=== PATIENT | male | born 1950 | race Two or more races ===

== ENCOUNTER 2019-04-05 10:43 | Outpatient (CLI) | payer OTHER | END 2019-04-05 10:45 | disposition home or self-care (01) | LOC: RAD 10:43 | DX: N20.0 Calculus of kidney (principal) ==

== ENCOUNTER 2020-08-13 11:00 | Outpatient (CLI) | payer OTHER | END 2020-08-13 11:08 | disposition home or self-care (01) | LOC: RAD 11:00 | PROVIDERS: ATTEND Urology | DX: N20.0 Calculus of kidney (principal) ==

== ENCOUNTER 2022-02-15 10:05 | Outpatient (CLI) | payer OTHER | END 2022-02-15 10:11 | disposition home or self-care (01) | LOC: LAB 10:05 | PROVIDERS: ATTEND Urology | DX: N20.0 Calculus of kidney (principal); N30.00 Acute cystitis without hematuria ==

== ENCOUNTER 2022-02-15 10:48 | Outpatient (CLI) | payer OTHER | END 2022-02-15 10:52 | disposition home or self-care (01) | LOC: RAD 10:48 | PROVIDERS: ATTEND Urology | DX: N20.0 Calculus of kidney (principal) ==